=== PATIENT | male | born 1990 | race Caucasian/White ===

== ENCOUNTER 2018-11-10 15:06 | Emergency (ER) | payer OTHER ==
--- OUTSIDE RECORDS SUMMARY | 2018-11-10 15:08 | XMS REPORT ---
:1990 Author Organization eClinicalWorks Care Team Providers Name Role Phone Zachary Pinoh Provider Role Unavailable Allergies, Adverse Reactions, Alerts Substance Reaction Event Type Dilaudid increased pain Drug Allergy Problems Problem Type Condition Code Onset Dates Condition Status Problem Benign essential hypertension I10 Active Problem Fever of unknown origin R50.9 Active Problem Adult BMI 33.0-33.9 kg/sq m Z68.33 Active Assessment Benign essential hypertension I10 Active Assessment Encounter for preventative adult Z00.00 Active health care examination Assessment Adult BMI 33.0-33.9 kg/sq m Z68.33 Active Medications No Known Medications Results No Known Results Summary Purpose eClinicalWorks Submission
--- OUTSIDE RECORDS SUMMARY | 2018-11-10 15:08 | XMS REPORT ---
:1990 Author Organization eClinicalWorks Care Team Providers Name Role Phone PinoZacharyh Provider Role Unavailable Allergies No Known Allergies Problems Problem Type Condition Code Onset Dates Condition Status Problem Benign essential hypertension I10 Active Problem Fever of unknown origin R50.9 Active Problem Adult BMI 33.0-33.9 kg/sq m Z68.33 Active Medications No Known Medications Results No Known Results Summary Purpose eClinicalWorks Submission
--- OUTSIDE RECORDS SUMMARY | 2018-11-10 15:08 | XMS REPORT ---
:1990 Author Organization e[employer]Works Care Team Providers Name Role Phone Jayesh Pino Provider Role Unavailable Allergies No Known Allergies Problems Problem Type Condition Code Onset Dates Condition Status Problem Benign essential hypertension I10 Active Problem Fever of unknown origin R50.9 Active Problem Adult BMI 33.0-33.9 kg/sq m Z68.33 Active Medications No Known Medications Results No Known Results Summary Purpose eClinicalWorks Submission
[2018-11-10] MEDS ORDERED: IPRATROPIUM BROM 0.5MG/2.5ML ONE (16:19)
[2018-11-10] MEDS ORDERED: NA CHLORIDE 0.9% 1,000 ML ONE (16:19)
[2018-11-10] MEDS ORDERED: CEFTRIAXONE/SWI 1gm 1 GM/10 ML SYR ONE (16:19)
[2018-11-10] MEDS ORDERED: ALBUTEROL 2.5 MG/3 ML NEB SOL ONE (16:19)
--- NOTE | 2018-11-10 16:51 | RAD REPORT ---
EXAM DESCRIPTION: RAD - Chest Pa And Lat (2 Views) - 11/10/2018 4:18 pm CLINICAL HISTORY: Anterior chest pain COMPARISON: April 2018 TECHNIQUE: PA and lateral views of the chest were obtained. FINDINGS: The lungs are clear of a focal process. Interstitial markings are mildly prominent but no t clearly different prior study. Heart size is normal and central vasculature is within normal limits . No pleural effusion or pneumothorax seen. No acute bony finding noted. No aortic abnormality. IMPRESSION: Prominent interstitial markings similar to comparison study. No focal mass or consolidat ion.
[2018-11-10 16:54] LABS: Absolute Lymphocytes (CBC) 1.9 K/uL (0.7-4.9); Absolute Monocytes 0.9 K/uL (0.1-1.3); Absolute Neutrophil 9.2 K/uL (1.8-8.0); Basophils % 0.3 % (0-1.3); Eosinophils % 1.1 % (0-4.4); Lymphocytes % 15.7 % (15.3-44.8); MPV 9.4 fL (7.6-11.3); Monocytes % 7.6 % (3.3-12.3); RBC Red Blood Cell Count 5.18 M/uL (4.33-5.43)
[2018-11-10] MEDS ORDERED: AZITHROMYCIN IV 500 MG in NA CHLORIDE 0.9% 250 ML IVPB ONE (17:00)
[2018-11-10 17:11] LABS: ALT/SGPT 27 U/L (12-78); AST/SGOT 15 U/L (15-37); Alkaline Phosphatase 100 U/L (45-117); BUN Blood Urea Nitrogen 10 mg/dL (7-18); Bicarbonate 25 mmol/L (21-32); Bilirubin Total 0.5 mg/dL (0.2-1.0); Glucose Level 97 mg/dL (74-106); NT PRO-BNP 41 pg/mL (<125); Potassium 3.8 mmol/L (3.5-5.1); Protein, Total 7.6 g/dL (6.4-8.2); Sodium Level 142 mmol/L (136-145); Troponin I < 0.02 ng/mL (0.0-0.045)
[2018-11-10] MEDS ORDERED: METHYLPREDNISOLONE 125 MG INJ ONE (17:36)
[2018-11-10] MEDS ORDERED: predniSONE 20 MG TAB ONE (17:36)
--- NOTE | 2018-11-10 18:21 | RAD REPORT ---
EXAM DESCRIPTION: CT - Chest For Pe Angio - 11/10/2018 5:56 pm CLINICAL HISTORY: Progressive shortness of breath COMPARISON: Chest films same date TECHNIQUE: Dynamically enhanced 3 mm thick images of the chest were obtained during administration o f approximately 150mL Isovue 370 IV contrast. Coronal and oblique MIP reconstruction images were gene rated and reviewed. Exam utilizes a protocol to evaluate the pulmonary arterial tree. All CT scans are performed using dose optimization technique as appropriate and may include automated exposure control or mA/KV adjustment according to patient size. FINDINGS: No pulmonary emboli in the main pulmonary artery is or lobar arteries. No convincing evide nce for segmental branch pulmonary emboli. The distal segmental and subsegmental branch vessels are l imited in assessment due to motion. Likelihood of pulmonary embolic disease is felt to be low. Pulmo nary arterial tree opacification was not optimal. The aorta as imaged shows no acute or suspicious finding. No pericardial thickening or effusion. No infiltrate or mass in the lung parenchyma. No pleural effusion or pleural thickening. No mediastinal or hilar suspicious masses. No chest wall masses or abnormal axillary lymphadenopathy. IMPRESSION: No pulmonary emboli identified. Assessment of the distal segmental and subsegmental bran ches was limited due to motion. Likelihood of pulmonary embolic disease is felt to be low. No acute lung parenchymal process. No suspicious mediastinal or hilar mass. No other significant or suspicious findings.
[2018-11-10 18:22] LABS: Arterial Blood Carboxyhemoglob 0.8 % (0-1.5); Blood O2 Saturation 95.6 % (92-98.5)
--- NOTE | 2018-11-10 18:52 | EDPHYS ---
Physician Documentation [facility] Name: Evaristo Honeycutt Age: 28 yrs Sex: Male : 1990 Arrival Date: 11/10/2018 Time: 15:07 Bed 23 Private MD: Alvarez [facility] ED Physician Dayton Busby HPI: 11/10 16:04 This 28 yrs old Male presents to ER via Unassigned with complaints of Chest channing Pain, Shortness Of Breath. 16:04 The patient or guardian reports chest pain that is located primarily in the anterior [facility] chest wall. Historical: - Allergies: 16:48 Dilaudid; la1 - PMHx: 16:48 Hypertension; la1 - Immunization history:: Adult Immunizations. - Social history:: Smoking status: Patient/guardian denies using tobacco. - Ebola Screening: : No symptoms or risks identified at this time. ROS: 16:04 Constitutional: Negative for fever, chills, and weight loss, Eyes: Negative for injury, channing pain, redness, and discharge, ENT: Negative for injury, pain, and discharge, Neck: Negative for injury, pain, and swelling, Cardiovascular: Negative for chest pain, palpitations, and edema, Abdomen/GI: Negative for abdominal pain, nausea, vomiting, diarrhea, and constipation, Back: Negative for injury and pain, : Negative for injury, bleeding, discharge, and swelling, MS/Extremity: Negative for injury and deformity, Skin: Negative for injury, rash, and discoloration, Neuro: Negative for headache, weakness, numbness, tingling, and seizure, Psych: Negative for depression, anxiety, suicide ideation, homicidal ideation, and hallucinations, Allergy/Immunology: Negative for hives, rash, and allergies, Endocrine: Negative for neck swelling, polydipsia, polyuria, polyphagia, and marked weight changes, Hematologic/Lymphatic: Negative for swollen nodes, abnormal bleeding, and unusual bruising. 16:04 Respiratory: Positive for cough, shortness of breath, at rest. Exam: 16:04 Constitutional: This is a well developed, well nourished patient who is awake, alert, channing and in no acute distress. Head/Face: Normocephalic, atraumatic. Eyes: Pupils equal round and reactive to light, extra-ocular motions intact. Lids and lashes normal. Conjunctiva and sclera are non-icteric and not injected. Cornea within normal limits. Periorbital areas with no swelling, redness, or edema. ENT: Nares patent. No nasal discharge, no septal abnormalities noted. Tympanic membranes are normal and external auditory canals are clear. Oropharynx with no redness, swelling, or masses, exudates, or evidence of obstruction, uvula midline. Mucous membranes moist. Neck: Trachea midline, no thyromegaly or masses palpated, and no cervical lymphadenopathy. Supple, full range of motion without nuchal rigidity, or vertebral point tenderness. No Meningismus. Chest/axilla: Normal chest wall appearance and motion. Nontender with no deformity. No lesions are appreciated. Cardiovascular: Regular rate and rhythm with a normal S1 and S2. No gallops, murmurs, or rubs. Normal PMI, no JVD. No pulse deficits. Respiratory: Lungs have equal breath sounds bilaterally, clear to auscultation and percussion. No rales, rhonchi or wheezes noted. No increased work of breathing, no retractions or nasal flaring. Abdomen/GI: Soft, non-tender, with normal bowel sounds. No distension or tympany. No guarding or rebound. No evidence of tenderness throughout. Back: No spinal tenderness. No costovertebral tenderness. Full range of motion. Male : Normal genitalia with no discharge or lesions. Skin: Warm, dry with normal turgor. Normal color with no rashes, no lesions, and no evidence of cellulitis. MS/ Extremity: Pulses equal, no cyanosis. Neurovascular intact. Full, normal range of motion. Neuro: Awake and alert, GCS 15, oriented to person, place, time, and situation. Cranial nerves II-XII grossly intact. Motor strength 5/5 in all extremities. Sensory grossly intact. Cerebellar exam normal. Normal gait. Psych: Awake, alert, with orientation to person, place and time. Behavior, mood, and affect are within normal limits. 16:59 Cardiovascular: Rate: normal, Rhythm: regular, Pulses: Pulses are 4+ in bilateral channing radial, brachial, femoral, popliteal, posterior tibial and and dorsalis pedis arteries.. Heart sounds: normal, normal S1and S2, no S3 or S4, no murmur, no rub, no gallop, Edema: is not appreciated, JVD: is not appreciated. 16:59 Musculoskeletal/extremity: DVT Exam: No signs of deep vein thrombosis. no pain, no swelling, no tenderness, negative Homans' sign noted on exam, no appreciated bluish discoloration, no erythema, no increased warmth. Vital Signs: 15:09 BP 141 / 89; Pulse 105; Resp 24; Temp 97.9; Pulse Ox 92% on R/A; Weight 99.79 kg (R); aj1 Height 5 ft. 9 in. (175.26 cm) (R); 16:47 BP 127 / 88; Pulse 88; Resp 18; Pulse Ox 98% on 2 lpm NC; la1 18:08 BP 128 / 69; Pulse 104; Resp 18; Pulse Ox 100% on R/A; la1 18:53 BP 135 / 70; Pulse 94; Resp 20; Pulse Ox 97% on R/A; la1 15:09 Body Mass Index 32.49 (99.79 kg, 175.26 cm) aj1 MDM: 15:[address] [facility] 16:05 Data reviewed: vital signs, nurses notes, lab test result(s), EKG, radiologic studies, channing plain films. 05 15:51 Order name: Flu; Complete Time: 16:59 [facility] 11/10 16:03 Order name: CBC with Diff [facility] 11/10 16:03 Order name: Comprehensive Metabolic Panel [facility] 11/10 16:03 Order name: Blood Culture Adult (2) [facility] 11/10 16:03 Order name: Troponin I; Complete Time: 17:17 [facility] 11/10 16:03 Order name: D-Dimer; Complete Time: 17:17 [facility] 11/10 15:51 Order name: Chest Pa And Lat (2 Views) XRAY; Complete Time: 16:59 [facility] 11/10 16:03 Order name: BNP; Complete Time: 17:17 [facility] 11/10 16:03 Order name: CBC with Automated Diff; Complete Time: 16:59 EDMS 11/10 16:03 Order name: Comprehensive Metabolic Panel; Complete Time: 17:17 EDFL 11/10 17:17 Order name: CT Chest For PE Angio; Complete Time: 18:27 [facility] 11/10 17:17 Order name: US Extremity Venous W Compression Patel [facility] 11/10 18:01 Order name: ABG: on room air [facility] 11/10 18:01 Order name: ABG Arterial Blood Gas; Complete Time: 18:49 EDFL 11/10 18:52 Order name: Vital Signs: room air; Complete Time: 18:53 [facility] Administered Medications: 17:17 Drug: NS 0.9% 1000 ml Route: IV; Rate: 1 bolus; Site: left antecubital; la1 17:39 Follow up: IV Status: Completed infusion la1 17:17 Drug: Albuterol - atroVENT (3:1) (2.5 mg - 0.5 mg) 3 ml Route: Nebulizer; la1 17:21 Follow up: Response: No adverse reaction la1 17:18 Drug: Rocephin - (cefTRIAXone) 1 grams Route: IVPB; Infused Over: 30 mins; Site: left la1 antecubital; 17:21 Follow up: IV Status: Completed infusion la1 17:40 Drug: Zithromax 500 mg Route: IVPB; Infused Over: 1 hrs; Site: left antecubital; la1 18:40 Follow up: IV Status: Completed infusion; IV Intake: 250ml la1 17:40 Drug: SOLU-Medrol 125 mg Route: IVP; Site: left antecubital; la1 18:12 Follow up: Response: No adverse reaction la1 17:40 Drug: predniSONE 40 mg Route: PO; la1 18:12 Follow up: Response: No adverse reaction la1 19:17 Drug: Aspirin 162 mg Route: PO; la1 19:17 Follow up: Response: Medication administered at discharge. pr1 Disposition: 11/10/18 18:51 Discharged to Home. Impression: Bronchitis, not specified as acute or chronic, Hypoxemia, Tobacco abuse counseling - vaping, Tobacco use, Chest pain, unspecified, Chest pain on breathing. - Condition is Stable. - Discharge Instructions: Acute Bronchitis, Adult, How to Use an Inhaler, Steps to Quit Smoking, Smoking Hazards, Upper Respiratory Infection, Adult, Acute Bronchitis, Sypr-kk-Etkx, Upper Respiratory Infection, Adult, Yzsu-la-Espx, Steps to Quit Smoking, Phvh-ey-Tpig, Hypoxemia, Aspirin and Your Heart. - Prescriptions for Medrol (Angle) 4 mg Oral Tablets, Dose Pack - take 1 tablet by ORAL route as directed - follow package instructions; 1 packet. Albuterol Sulfate 90 mcg/actuation - inhale 1-2 puff by INHALATION route every 4-6 hours; 1 Inhaler. Zithromax 500 mg Oral Tablet - take 1 tablet by ORAL route once daily for 5 days; 5 tablet. - Medication Reconciliation Form, Thank You Letter, Antibiotic Education, Prescription Opioid Use form. - Follow up: Jayesh Pino; When: 2 - 3 days; Reason: Recheck today's complaints, Continuance of care, Re-evaluation by your physician. Follow up: Juanjose Bowen; When: 2 - 3 days; Reason: Recheck today's complaints, Continuance of care, Re-evaluation by your physician. Follow up: Anup Ortiz MD; When: 2 - 3 days; Reason: Recheck today's complaints, Re-evaluation by your physician. - Problem is new. - Symptoms have improved. Signatures: Dispatcher [employer] EDMS Dayton Busby MD MD cha Attema, Lee RN RN la1 Corrections: (The following items were deleted from the chart) 18:56 18:51 11/10/2018 18:51 Discharged to Home. Impression: Bronchitis, not specified as channing acute or chronic; Hypoxemia; Tobacco abuse counseling - vaping; Tobacco use; Chest pain, unspecified; Chest pain on breathing. Condition is Stable. Discharge Instructions: Acute Bronchitis, Adult, How to Use an Inhaler, Steps to Quit Smoking, Smoking Hazards, Upper Respiratory Infection, Adult, Acute Bronchitis, Wxev-wq-Sxcl, Upper Respiratory Infection, Adult, Xnmb-rx-Khnp, Steps to Quit Smoking, Ckpb-xq-Ltzl, Hypoxemia, Aspirin and Your Heart. Prescriptions for Medrol (Angel) 4 mg Oral Tablets, Dose Pack - take 1 tablet by ORAL route as directed - follow package instructions; 1 packet, Albuterol Sulfate 90 mcg/actuation - inhale 1-2 puff by INHALATION route every 4-6 hours; 1 Inhaler, Zithromax 500 mg Oral Tablet - take 1 tablet by ORAL route once daily for 5 days; 5 tablet. and Forms are Medication Reconciliation Form, Thank You Letter, Antibiotic Education, Prescription Opioid Use. Follow up: Jayesh Pino; When: 2 - 3 days; Reason: Recheck today's complaints, Continuance of care, Re-evaluation by your physician. Follow up: Juanjose Bowen; When: 2 - 3 days; Reason: Recheck today's complaints, Continuance of care, Re-evaluation by your physician. Problem is new. Symptoms have improved. [facility] 19:18 18:56 11/10/2018 18:51 Discharged to Home. Impression: Bronchitis, not specified as la1 acute or chronic; Hypoxemia; Tobacco abuse counseling - vaping; Tobacco use; Chest pain, unspecified; Chest pain on breathing. Condition is Stable. Discharge Instructions: Acute Bronchitis, Adult, How to Use an Inhaler, Steps to Quit Smoking, Smoking Hazards, Upper Respiratory Infection, Adult, Acute Bronchitis, Wede-fk-Dssc, Upper Respiratory Infection, Adult, Oylb-yu-Dddy, Steps to Quit Smoking, Bcfr-pi-Xlwi, Hypoxemia, Aspirin and Your Heart. Prescriptions for Medrol (Angel) 4 mg Oral Tablets, Dose Pack - take 1 tablet by ORAL route as directed - follow package instructions; 1 packet, Albuterol Sulfate 90 mcg/actuation - inhale 1-2 puff by INHALATION route every 4-6 hours; 1 Inhaler, Zithromax 500 mg Oral Tablet - take 1 tablet by ORAL route once daily for 5 days; 5 tablet. and Forms are Medication Reconciliation Form, Thank You Letter, Antibiotic Education, Prescription Opioid Use. Follow up: Jayesh Pino; When: 2 - 3 days; Reason: Recheck today's complaints, Continuance of care, Re-evaluation by your physician. Follow up: Juanjose Bowen; When: 2 - 3 days; Reason: Recheck today's complaints, Continuance of care, Re-evaluation by your physician. Follow up: Anup Ortiz; When: 2 - 3 days; Reason: Recheck today's complaints, Re-evaluation by your physician. Problem is new. Symptoms have improved. [facility]
--- NOTE | 2018-11-10 18:52 | ER ---
Nurse's Notes [facility] Name: Evaristo Honeycutt Age: 28 yrs Sex: Male : 1990 Arrival Date: 11/10/2018 Time: 15:07 Bed 23 Private MD: Jayesh Pino Diagnosis: Bronchitis, not specified as acute or chronic;Hypoxemia;Tobacco abuse counseling-vaping;Tobacco use;Chest pain, unspecified;Chest pain on breathing Presentation: 11/10 15:09 Acuity: TINY 2 aj1 16:49 Presenting complaint: Patient states: Progressive SOB, pain to chest and head, fatigue. la1 Transition of care: patient was not received from another setting of care. Onset of symptoms was November 10, 2018. Risk Assessment: Do you want to hurt yourself or someone else? Patient reports no desire to harm self or others. Initial Sepsis Screen: Does the patient meet any 2 criteria?. Initial Sepsis Screen: Does the patient have a suspected source of infection? No. Patient's initial sepsis screen is negative. Care prior to arrival: None. 16:49 Method Of Arrival: Wheelchair la1 Historical: - Allergies: 16:48 Dilaudid; la1 - PMHx: 16:48 Hypertension; la1 - Immunization history:: Adult Immunizations. - Social history:: Smoking status: Patient/guardian denies using tobacco. - Ebola Screening: : No symptoms or risks identified at this time. Screenin:23 Abuse screen: Denies injuries from another. Abuse screen: Denies threats or abuse. la1 Nutritional screening: No deficits noted. Tuberculosis screening: No symptoms or risk factors identified. Fall Risk None identified. Assessment: 15:22 General: Appears ill, Behavior is calm, cooperative. Pain: Complains of pain in face la1 and chest Pain does not radiate. Pain began 2-3 days ago. Neuro: Level of Consciousness is awake, alert, obeys commands, Oriented to person, place, time, situation. Cardiovascular: Reports shortness of breath, Heart tones S1 S2 present Capillary refill < 3 seconds Patient's skin is warm and dry. Rhythm is sinus rhythm. Respiratory: Airway is patent Respiratory effort is even, unlabored, Respiratory pattern is regular, symmetrical, Breath sounds are clear bilaterally. GI: Abdomen is non-distended, obese, Bowel sounds present X 4 quads. : No signs and/or symptoms were reported regarding the genitourinary system. 19:03 Reassessment: Patient appears in no apparent distress at this time. No changes from la1 previously documented assessment. Patient and/or family updated on plan of care and expected duration. Pain level reassessed. Patient is alert, oriented x 3, equal unlabored respirations, skin warm/dry/pink. Patient states symptoms have improved. Vital Signs: 15:09 BP 141 / 89; Pulse 105; Resp 24; Temp 97.9; Pulse Ox 92% on R/A; Weight 99.79 kg (R); aj1 Height 5 ft. 9 in. (175.26 cm) (R); 16:47 BP 127 / 88; Pulse 88; Resp 18; Pulse Ox 98% on 2 lpm NC; la1 18:08 BP 128 / 69; Pulse 104; Resp 18; Pulse Ox 100% on R/A; la1 18:53 BP 135 / 70; Pulse 94; Resp 20; Pulse Ox 97% on R/A; la1 15:09 Body Mass Index 32.49 (99.79 kg, 175.26 cm) aj ED Course: 15:07 Patient arrived in ED. mr 15:07 Jayesh Pino DO is Private Physician. mr 15:09 Erica Mead, JO-ANN is Primary Nurse. ss 15:09 Triage completed. aj1 15:13 Dayton Busby MD is Attending Physician. channing 15:22 Arm band placed on left wrist. la1 15:23 Side rails up X 1. supply tech on. Pulse ox on. NIBP on. la1 16:16 Chest Pa And Lat (2 Views) XRAY In Process Unspecified. EDMS 16:48 No provider procedures requiring assistance completed. Inserted saline lock: 20 gauge la1 in left antecubital area, using aseptic technique. Blood collected. Oxygen administration via nasal cannula \T\ 2L/min. 17:[address] mw3 17:56 CT Chest For PE Angio In Process Unspecified. EDMS 18:32 Ultrasound completed. Patient tolerated well. Notified ED Physician marisa. sg3 18:50 Jayesh Pino DO is Referral Physician. channing 18:50 Juanjose Bowen MD is Referral Physician. channing 18:56 Anup Ortiz MD is Referral Physician. channing 19:17 IV discontinued, intact, bleeding controlled, No redness/swelling at site. Pressure la1 dressing applied. 19:19 US Extremity Venous W Compression Patel In Process Unspecified. EDMS Administered Medications: 17:17 Drug: NS 0.9% 1000 ml Route: IV; Rate: 1 bolus; Site: left antecubital; la1 17:39 Follow up: IV Status: Completed infusion la1 17:17 Drug: Albuterol - atroVENT (3:1) (2.5 mg - 0.5 mg) 3 ml Route: Nebulizer; la1 17:21 Follow up: Response: No adverse reaction la1 17:18 Drug: Rocephin - (cefTRIAXone) 1 grams Route: IVPB; Infused Over: 30 mins; Site: left la1 antecubital; 17:21 Follow up: IV Status: Completed infusion la1 17:40 Drug: Zithromax 500 mg Route: IVPB; Infused Over: 1 hrs; Site: left antecubital; la1 18:40 Follow up: IV Status: Completed infusion; IV Intake: 250ml la1 17:40 Drug: SOLU-Medrol 125 mg Route: IVP; Site: left antecubital; la1 18:12 Follow up: Response: No adverse reaction la1 17:40 Drug: predniSONE 40 mg Route: PO; la1 18:12 Follow up: Response: No adverse reaction la1 19:17 Drug: Aspirin 162 mg Route: PO; la1 19:17 Follow up: Response: Medication administered at discharge. la1 Intake: 18:40 IV: 250ml; Total: 250ml. la1 Outcome: 18:51 Discharge ordered by . channing 19:17 Discharged to home ambulatory. la1 19:17 Condition: stable 19:17 Discharge instructions given to patient, Instructed on discharge instructions, follow up and referral plans. medication usage, Demonstrated understanding of instructions, follow-up care, medications, Prescriptions given X 3. 19:18 Patient left the ED. la1 Signatures: Dispatcher [employer] EDMS Elayne Guillen RN RN aj1 Dayton Busby MD MD cha Rivera, Devorah mr Erica Mead RN RN ss Attema, Lee, RN RN la1 Judith Morrison 3 Arlene Antunez mw3
[2018-11-10] MEDS ORDERED: ASPIRIN 81 MG CHEWABLE TABLET ONE (19:14)
[2018-11-10 19:31] VITALS: TEMP 97.9
[2018-11-10 19:40] VITALS: BP 135/70; O2SAT 97
--- NOTE | 2018-11-10 19:57 | RAD REPORT ---
EXAM DESCRIPTION: US - Extrem Venous W Compress Patel - 11/10/2018 7:19 pm CLINICAL HISTORY: Leg pain and swelling, elevated D-dimer COMPARISON: None. TECHNIQUE: Real-time sonographic evaluation of the bilateral lower extremity common femoral, superfi cial femoral, popliteal and posterior tibial veins was performed. FINDINGS: Normal compressibility, flow augmentation, phasic flow and spontaneous flow are identified in the left and right lower extremity common femoral, superficial femoral, popliteal and posterior t ibial veins. No intraluminal filling defects seen. IMPRESSION: No DVT in either lower extremity.
--- NOTE | 2018-11-11 08:48 | EKG ---
Test Date: 2018-11-10 Test Time: 15:19:13 Fuse Cutter: LA MEASUREMENT RESULTS: Intervals: Rate: 95 WV: 134 QRSD: 104 QT: 350 QTc: 439 Hubbard: P: 35 WV: 134 QRS: 52 T: 44 INTERPRETIVE STATEMENTS: Normal sinus rhythm Normal ECG No previous ECG available for comparison Electronically Signed On 11-11-18 08:47:51 CDT by Alden Gayle
== END 2018-11-10 19:18 | disposition home or self-care (01) ==
LOC: ER 15:06
DX: J40 Bronchitis, not specified as acute or chronic (principal); R09.02 Hypoxemia; R07.1 Chest pain on breathing; Z72.0 Tobacco use; Z71.6 Tobacco abuse counseling
CPT/HCPCS: 36415; 71046; 71275; 80053; 82805; 83880; 84484; 85025; 85379; 87040; 87804; 93005; 93970; 94640; 96365; 96375; 99285; J0456; J0696; J2930; J7030; J7512; Q9967

== ENCOUNTER 2019-03-26 09:52 | Emergency (ER) | payer OTHER ==
--- OUTSIDE RECORDS SUMMARY | 2019-03-26 09:55 | XMS REPORT ---
:1990 Author [facility] Address [address] [place] [address] Dr. Garcia [address] [place] [id number] Care Team Providers Name Role Phone Unavailable Unavailable Unavailable Problems This patient has no known problems. Allergies, Adverse Reactions, Alerts This patient has no known allergies or adverse reactions. Medications This patient has no known medications.
--- OUTSIDE RECORDS SUMMARY | 2019-03-26 09:55 | XMS REPORT ---
:1990 Author Organization [employer] Care Team Providers Name Role Phone Alvarez Jayesh Provider Role Unavailable Allergies, Adverse Reactions, Alerts Substance Reaction Event Type Dilaudid increased pain Drug Allergy Problems Problem Type Condition Code Onset Dates Condition Status Assessment SOB (shortness of breath) R06.02 Active Problem Adult BMI 33.0-33.9 kg/sq m Z68.33 Active Problem Benign essential hypertension I10 Active Problem Nicotine dependence with F17.209 Active nicotine-induced disorder, unspecified nicotine product type Assessment Acute bronchitis, unspecified J20.9 Active organism Assessment Nicotine dependence with F17.209 Active nicotine-induced disorder, unspecified nicotine product type Problem Fever of unknown origin R50.9 Active Medications Medication Code System Code Instructions Start Date End Date Status Dosage Symbicort [facility] [id number] 160-4.5 MCG/ACT November 12, May 11, Active 2 puffs Inhalation Twice 2018 2018 a day Results No Known Results Summary Purpose eClinicalWorks Submission
--- OUTSIDE RECORDS SUMMARY | 2019-03-26 09:55 | XMS REPORT ---
:1990 Author Organization eClinicalWorks Care Team Providers Name Role Phone Alvarez Jayesh Provider Role Unavailable Allergies No Known Allergies Problems Problem Type Condition Code Onset Dates Condition Status Problem Allergic rhinitis, unspecified J30.9 Active seasonality, unspecified trigger Problem Adult BMI 33.0-33.9 kg/sq m Z68.33 Active Problem Nicotine dependence with F17.209 Active nicotine-induced disorder, unspecified nicotine product type Problem Benign essential hypertension I10 Active Problem Fever of unknown origin R50.9 Active Medications No Known Medications Results No Known Results Summary Purpose eClinicalWorks Submission
--- NOTE | 2019-03-26 10:52 | EDPHYS ---
Physician Documentation [facility] Name: Evaristo Honeycutt Age: 28 yrs Sex: Male : 1990 Arrival Date: 03/26/2019 Time: 09:57 Bed 16 Private MD: Alvarez [facility] ED Physician Javi Reyes HPI: 03/26 10:25 This 28 yrs old Male presents to ER via Ambulatory with complaints of Foot cp Injury. 10:25 The patient presents with an injury, a puncture wound, wire from chicken coup. The cp complaints affect the right great toe. Context: the patient can fully bear weight, the patient is able to ambulate, with mild difficulty. Onset: The symptoms/episode began/occurred last night. 20:25 The patient has been recently seen by a physician: Dr. Pino earlier today, with cp similar presenting complaints, and was sent to the [facility] Emergency Department for further evaluation. Historical: - Allergies: 10:20 Dilaudid; iw - Home Meds: 10:20 None [Active]; iw - PMHx: 10:20 Hypertension; iw - PSHx: 10:20 right foot; iw - Immunization history:: Adult Immunizations Last tetanus immunization: < 10 years ago. - Social history:: Smoking status: . - Ebola Screening: : Patient negative for fever greater than or equal to 101.5 degrees Fahrenheit, and additional compatible Ebola Virus Disease symptoms Patient denies exposure to infectious person Patient denies travel to an Ebola-affected area in the 21 days before illness onset No symptoms or risks identified at this time. ROS: 10:30 Skin: Positive for puncture, of the right great toe. cp 10:30 Eyes: Negative for injury, pain, redness, and discharge. cp 10:30 Constitutional: Negative for body aches, chills, fever, poor PO intake. 10:30 Cardiovascular: Negative for chest pain, palpitations. 10:30 Respiratory: Negative for cough, shortness of breath, wheezing. 10:30 Abdomen/GI: Negative for abdominal pain, nausea, vomiting, and diarrhea. 10:30 Neuro: Negative for altered mental status, headache, weakness. 10:30 All other systems are negative. Exam: 10:40 Constitutional: The patient appears in no acute distress, alert, awake, well developed, cp well nourished. 10:40 Head/Face: Normocephalic, atraumatic. cp 10:40 Musculoskeletal/extremity: Extremities: grossly normal except: noted in the right great toe: pain, swelling, tenderness, There is no evidence of decreased ROM, no open wounds noted, no erythema, mild pain with movement at metatarsal phalangeal joint, Perfusion: the extremity is normally perfused throughout, Sensation intact. Vital Signs: 10:18 BP 131 / 79; Pulse 80; Resp 16; Temp 98.0; Pulse Ox 97% on R/A; Weight 104.33 kg; iw Height 5 ft. 10 in. (177.80 cm); Pain 6/10; 10:18 Body Mass Index 33.00 (104.33 kg, 177.80 cm) iw MDM: 10:16 Patient medically screened. cp 10:49 Data reviewed: vital signs, nurses notes, radiologic studies, plain films. Test cp interpretation: by ED physician or midlevel provider: xrays of right foot negative for fracture, hardware intact. 03/26 10:19 Order name: XRAY Foot RIGHT 3 View cp Administered Medications: 11:00 Drug: Tetanus-Diphtheria Toxoid Adult 0.5 ml {Doctor Of Podiatric Medicine: [employer]. Exp: ph 11/19/2020. Lot #: [id number]. } Route: IM; Site: left deltoid; 11:15 Follow up: Response: No adverse reaction ph Disposition: 13:26 Co-signature as Attending Physician, Javi Reyes MD I agree with the assessment and kdr plan of care. Disposition: 03/26/19 10:51 Discharged to Home. Impression: Puncture wound without foreign body of right great toe without damage to nail. - Condition is Stable. - Discharge Instructions: Puncture Wound. - Prescriptions for Levaquin 500 mg Oral Tablet - take 1 tablet by ORAL route once daily for 10 days; 10 tablet. Ibuprofen 800 mg Oral Tablet - take 1 tablet by ORAL route every 8 hours As needed take with food; 30 tablet. - Medication Reconciliation Form, Thank You Letter, Antibiotic Education, Prescription Opioid Use form. - Follow up: Jayesh Pino DO; When: 48 Hours; Reason: Wound Recheck. - Problem is new. - Symptoms have improved. Signatures: Dispatcher [employer] EDMS Javi Reyes MD MD kdr Gely Abraham RN RN iw Tara Lewis RN RN Hannah, [place], RUDDY PA cp Corrections: (The following items were deleted from the chart) 11:17 10:51 03/26/2019 10:51 Discharged to Home. Impression: Puncture wound without foreign ph body of right great toe without damage to nail. Condition is Stable. Forms are Medication Reconciliation Form, Thank You Letter, Antibiotic Education, Prescription Opioid Use. Follow up: Jayesh Pino; When: 48 Hours; Reason: Wound Recheck. Problem is new. Symptoms have improved. cp
--- NOTE | 2019-03-26 10:52 | ER ---
Nurse's Notes [facility] Name: Evaristo Honeycutt Age: 28 yrs Sex: Male : 1990 Arrival Date: 03/26/2019 Time: 09:57 Bed 16 Private MD: Jayesh Pino Diagnosis: Puncture wound without foreign body of right great toe without damage to nail Presentation: 03/26 10:15 Presenting complaint: Patient states: stepped on metal piece of fencing last night, was iw sharp wiring that almost went through the right foot, pulled out wire but still having pain, hx of crush injury to foot with metal plate and screws in place, was seen at Dr. Pino's office and sent here. Transition of care: patient was not received from another setting of care. Onset of symptoms was March 25, 2019. Risk Assessment: Do you want to hurt yourself or someone else? Patient reports no desire to harm self or others. Initial Sepsis Screen: Does the patient meet any 2 criteria? No. Patient's initial sepsis screen is negative. Does the patient have a suspected source of infection? No. Patient's initial sepsis screen is negative. Care prior to arrival: None. 10:15 Method Of Arrival: Ambulatory iw 10:15 Acuity: TINY 4 iw Historical: - Allergies: 10:20 Dilaudid; iw - Home Meds: 10:20 None [Active]; iw - PMHx: 10:20 Hypertension; iw - PSHx: 10:20 right foot; iw - Immunization history:: Adult Immunizations Last tetanus immunization: < 10 years ago. - Social history:: Smoking status: . - Ebola Screening: : Patient negative for fever greater than or equal to 101.5 degrees Fahrenheit, and additional compatible Ebola Virus Disease symptoms Patient denies exposure to infectious person Patient denies travel to an Ebola-affected area in the 21 days before illness onset No symptoms or risks identified at this time. Screenin:16 Abuse screen: Denies threats or abuse. Denies injuries from another. Nutritional ph screening: No deficits noted. Tuberculosis screening: No symptoms or risk factors identified. Fall Risk None identified. Assessment: 10:45 General: Appears in no apparent distress. comfortable, well groomed, Behavior is calm, ph cooperative, appropriate for age, Denies fever. Pain: Complains of pain in left foot. Neuro: Level of Consciousness is awake, alert, obeys commands, Oriented to person, place, time, situation. Cardiovascular: Capillary refill < 3 seconds in bilateral fingers Patient's skin is warm and dry. Respiratory: Airway is patent Respiratory effort is even, unlabored. Derm: Skin is intact, is healthy with good turgor, Skin is pink, warm \T\ dry. Musculoskeletal: Circulation, motion, and sensation intact. Range of motion: intact in all extremities. Vital Signs: 10:18 BP 131 / 79; Pulse 80; Resp 16; Temp 98.0; Pulse Ox 97% on R/A; Weight 104.33 kg; iw Height 5 ft. 10 in. (177.80 cm); Pain 6/10; 10:18 Body Mass Index 33.00 (104.33 kg, 177.80 cm) iw ED Course: 09:57 Patient arrived in ED. mr 09:57 Jayesh Pino DO is Private Physician. mr 10:08 Tara Lewis RN is Primary Nurse. ph 10:15 [place] Young PA is PHCP. cp 10:15 Javi Reyes MD is Attending Physician. cp 10:18 Triage completed. iw 10:18 Arm band placed on. iw 10:49 Jayesh Pino DO is Referral Physician. cp 10:52 XRAY Foot RIGHT 3 View In Process Unspecified. EDMS 11:16 Patient has correct armband on for positive identification. Bed in low position. Call ph light in reach. Side rails up X 1. 11:17 No provider procedures requiring assistance completed. Patient did not have IV access ph during this emergency room visit. Administered Medications: 11:00 Drug: Tetanus-Diphtheria Toxoid Adult 0.5 ml {3D Modeler: [employer]. Exp: ph 11/19/2020. Lot #: [id number]. } Route: IM; Site: left deltoid; 11:15 Follow up: Response: No adverse reaction ph Outcome: 10:51 Discharge ordered by MD. cp 11:17 Discharged to home ambulatory. ph 11:17 Condition: good 11:17 Discharge instructions given to patient, Instructed on discharge instructions, follow up and referral plans. medication usage, Demonstrated understanding of instructions, follow-up care, medications, Prescriptions given X 2. 11:17 Patient left the ED. ph Signatures: Dispatcher [employer] [facility] Devorah Laird Gely Abraham RN RN iw Tara Lewis RN RN ph Hannah, [place], PA PA cp Corrections: (The following items were deleted from the chart) 10:19 10:15 Presenting complaint: Patient states: stepped on metal piece of fencing last iw night, was sharp wiring that almost went through the right foot, pulled out wire but still having pain, hx of crush injury to foot with metal plate and screws in place iw
[2019-03-26] MEDS ORDERED: TETANUS & DIPHTHERIA TOX,ADULT 0.5 ML VIAL ONE (10:58)
--- NOTE | 2019-03-26 11:24 | RAD REPORT ---
EXAM DESCRIPTION: RAD - Foot Right 3 View - 03/26/2019 10:49 am CLINICAL HISTORY: Right foot pain, puncture wound to the foot, history of prior foot injury with janine calderón COMPARISON: January 2017 FINDINGS: No acute fracture is identified. There is no dislocation or periosteal reaction seen. Hard gunderson is in place at the base of the first metatarsal and in the calcaneus. Patient has degenerative c hange that is relatively mild at the first MTP joint. There are also early degenerative changes relat ed to the trauma at the talonavicular and calcaneal cuboid articulations. Numerous hemostasis clips are in place. Site of the puncture wound is not noted on any of the images. No foreign body is suspected. Right foot soft tissue findings are not clearly different from the com parison. IMPRESSION: No retained foreign body identified. Site of puncture wound is not demarcated on the magali ges. Degenerative and postsurgical changes are present to the bones of the right foot. No acute bone or eda int finding.
[2019-03-26 11:27] VITALS: BP 131/79; TEMP 98; O2SAT 97
== END 2019-03-26 11:17 | disposition home or self-care (01) ==
LOC: ER 09:52
DX: S91.131A Puncture wound without foreign body of right great toe without damage to nail, initial encounter (principal); W22.8XXA Striking against or struck by other objects, initial encounter; Y93.89 Activity, other specified; Y92.9 Unspecified place or not applicable; Z23 Encounter for immunization; Z88.8 Allergy status to other drugs, medicaments and biological substances; I10 Essential (primary) hypertension
CPT/HCPCS: 90471; 90714; 99283

== ENCOUNTER 2020-04-20 12:04 | Emergency (ER) | payer OTHER ==
--- OUTSIDE RECORDS SUMMARY | 2020-04-20 12:07 | XMS REPORT | Continuity of Care Document ---
:1990 Author Organization [facility] t Address [address] [place] [address] Care Team Providers Name Role Phone Unavailable Unavailable Unavailable Problems Condition Condition Condition Status Onset Resolution Last Treating Co mments Source Name Details Category Date Date Treatment Clinician Date Benign Benign Problem Active [facility] essential essential Luke s - hypertensi hypertensi [facility] Fever of Fever of Problem [facility] unknown unknown [facility] - origin origin [facility] Adult BMI Adult BMI Problem Active [facility] 33.0-33.9 33.0-33.9 Luke s - kg/sq m kg/sq m [facility] ent Clinics Nicotine Nicotine Problem [facility] dependence dependence Janine kes - with with [facility]oria nicotine-i nicotine-i l nduced nduced Outpati disorder, disorder, ent unspecifie unspecifie Cl inics d nicotine d nicotine product product type type Allergic Allergic Problem Active [facility] rhinitis, rhinitis, Luke s - unspecifie unspecifie Me moria d d l seasonalit seasonalit Ou tpati y, y, ent unspecifie unspecifie Cl inics d trigger d trigger Mixed Mixed Problem Active [facility] hyperlipid hyperlipid Janine kes - emia emia [facility]oria l [facility] ent Clinics Encounter Encounter Diagnosis Active [facility] for for [facility] - preventati preventati Me moria ve adult ve adult [facility] care ent examinatio examinatio Cl inics n n Allergies, Adverse Reactions, Alerts Allergy Allergy Status Severity Reaction(s) Onset Inactive Treating Comm ents Source Name Type Date Date Clinician Dilaudid Adverse Active increased [facility] Reaction pain [facility] - [facility] ent Clinics Medications Ordered Filled Start Stop Current Ordering Indication Dosage Frequency Signature Comments Components Source Medication Medication Date Date Medication? Clinician (SIG) Name Name Montelukast Montelukast 2018- Yes Jayesh [address] [facility] Sodium Sodium 0-28 Pino Janinekes - 00:00: [facility] 00 Outpati ent Clinics Procedures This patient has no known procedures. Encounters Start End Encounter Admission Attending Care Care Encounter Source Date/Time Date/Time Type Type Clinicians Facility Department ID 2020-01-12 2020-01-12 [facility] [id number] [facility] 08:45:00 08:45:00 t [facility] Medicine Outpati ent Clinics 2019-06-25 2019-06-25 [facility] [id number] [facility] 16:45:00 16:45:00 t [facility] Medicine Outpati ent Clinics 2019-05-05 2019-05-05 [facility] [id number] [facility] 08:30:00 08:30:00 t [facility] Medicine Outpati ent Clinics 2019-04-28 2019-04-28 [facility] [id number] [facility] 08:35:00 08:35:00 t [facility] Medicine Outpati ent Clinics 2019-04-04 2019-04-04 [facility] [id number] [facility] 08:30:00 08:30:00 t [facility] Medicine Outpati ent Clinics 2019-03-26 2019-03-26 [facility] [id number] [facility] 09:45:00 09:45:00 t [facility] Medicine Outpati ent Clinics 2018-12-19 2018-12-19 [facility] [id number] [facility] 11:17:00 11:17:00 t [facility] Medicine Outpati ent Clinics 2018-11-12 2018-11-12 [facility] [id number] [facility] 10:00:00 10:00:00 t [facility] Medicine Outpati ent Clinics 2018-03-12 2018-03-12 [facility] [id number] [facility] 13:34:00 13:34:00 t [facility] 2018-03-04 2018-03-04 Outpatient [facility]ne [facility] [id number] [facility] 08:48:00 08:48:00 [employer] [facility] 2017-11-08 2017-11-08 Outpatient Marianne Lop[facility] [id number] 10:30:00 10:30:00 [facility] ent Clinics Results This patient has no known results.
[2020-04-20] MEDS ORDERED: METHYLPREDNISOLONE 125 MG INJ ONE (12:26)
[2020-04-20] MEDS ORDERED: DIPHENHYDRAMINE 50 MG/ML VIAL ONE (12:27)
[2020-04-20] MEDS ORDERED: FAMOTIDINE 20 MG/2 ML VIAL IV ONE (12:27)
[2020-04-20] MEDS ORDERED: NA CHLORIDE 0.9% 1,000 ML ONE (12:27)
[2020-04-20] MEDS ORDERED: LEVALBUTEROL 1.25 MG/3 ML NEB ONE (12:40)
[2020-04-20 12:45] LABS: Absolute Lymphocytes (CBC) 2.9 K/uL (0.7-4.9); Basophils % 0.8 % (0-1.3); Hematocrit 45.4 % (39.6-49.0); Lymphocytes % 42.9 % (15.3-44.8); MPV 9.9 fL (7.6-11.3); RBC Red Blood Cell Count 5.23 M/uL (4.33-5.43)
[2020-04-20 12:54] LABS: BUN Blood Urea Nitrogen 9 mg/dL (7-18); Bicarbonate 25 mmol/L (21-32); Glucose Level 116 mg/dL (74-106); NT PRO-BNP 14 pg/mL (<125); Potassium 3.4 mmol/L (3.5-5.1); Sodium Level 142 mmol/L (136-145); Troponin (Emerg Dept Use Only) < 0.02 ng/mL (0.0-0.045)
--- NOTE | 2020-04-20 14:36 | RAD REPORT ---
EXAM DESCRIPTION: RAD - Foot Left 3 View - 04/20/2020 2:11 pm CLINICAL HISTORY: PAINnontraumatic COMPARISON: Foot Right 3 View dated 03/26/2019 FINDINGS: No fractures seen. No dislocation or periosteal reaction changes. There is expansile fraser e and slight lucency in the shaft of the second proximal phalanx. No similar finding in any of the ot her phalanges. There is no cortical disruption or periosteal reaction. Base and head of the second pr oximal phalanx are unremarkable. No other lucent or expansile changes seen in the foot. 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 Correlation is needed t o determine if there is any pain at the second proximal phalanx. No joint abnormality. No spurring or erosive change at the articular margins. No periarticular calcif ication, mass or soft tissue thickening. No plantar spur. No air or foreign body in the soft tissues. IMPRESSION: No acute bone finding. Lucent focus in the shaft second proximal phalanx with slight expansile change. No cortical disruptio n or periosteal reaction. 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 Correlation is needed with any pain localizing to the second proximal phalanx.
--- NOTE | 2020-04-20 14:37 | RAD REPORT ---
EXAM DESCRIPTION: RAD - Ankle Left 3 View - 04/20/2020 2:11 pm CLINICAL HISTORY: PAIN, nontraumatic COMPARISON: No comparisons FINDINGS: No fracture, dislocation or periosteal reaction. No joint effusion seen. No joint space na rrowing. Lateral soft tissues are mildly prominent. IMPRESSION: Mild lateral soft tissue swelling. No acute bone or joint finding at the left ankle.
--- NOTE | 2020-04-20 15:06 | ER ---
Nurse's Notes [facility] Name: Evaristo Honeycutt Age: 29 yrs Sex: Male : 1990 Arrival Date: 04/20/2020 Time: 12:05 Bed 4 Private MD: Diagnosis: Dyspnea, unspecified;Acute allergic reaction Presentation: 04/20 12:09 Chief complaint: Chief complaint: Patient states: "[facility] because I hurt my left ankle at work and I took an Ibuprofen and when I got to the urgent care they saw I was wheezing and sent me here". Audible wheezing and SOB noted. Pt denies recent illness. Pt reports symptoms began approximately 1 hr after taking Ibuprofen. 12:09 Acuity: TINY 2 aa5 12:09 Method Of Arrival: Ambulatory aa5 12:09 Coronavirus screen: Client denies travel out of the [place] in the last 14 days. At this aa5 time, the client does not indicate any symptoms associated with coronavirus-19. 12:09 Ebola Screen: Patient negative for fever greater than or equal to 101.5 degrees aa5 Fahrenheit, and additional compatible Ebola Virus Disease symptoms. Onset: The symptoms/episode began/occurred 1 hour(s) ago. Anaphylaxis evaluation, Audible wheezing. Initial Sepsis Screen: Does the patient meet any 2 criteria? RR > 20 per min. HR > 90 bpm. Does the patient have a suspected source of infection? No. Patient's initial sepsis screen is negative. Risk Assessment: Do you want to hurt yourself or someone else? Patient reports no desire to harm self or others. Onset of symptoms was April 20, 2020. Historical: - Allergies: 12:10 Dilaudid; aa5 - PMHx: 12:10 Hypertension; aa5 - PSHx: 12:10 right foot; aa5 - Immunization history:: Adult Immunizations. - Family history:: not pertinent. - Social history:: Smoking status: unknown. - Hospitalizations: : No recent hospitalization is reported. Screenin:34 Abuse screen: Denies threats or abuse. Nutritional screening: No deficits noted. aa5 Tuberculosis screening: No symptoms or risk factors identified. Fall Risk None identified. Assessment: 12:09 General: Appears distressed, uncomfortable, Behavior is cooperative. Pain: Complains of aa5 pain in left ankle Pain began today. Pt states "I hurt it coming down of something and felt like the ankle gave out on me". Neuro: Level of Consciousness is awake, alert, obeys commands, Oriented to person, place, time, situation. Cardiovascular: Heart tones S1 S2 present Rhythm is regular. Respiratory: Reports shortness of breath Airway is patent Respiratory effort is labored, Respiratory pattern is tachypnea Breath sounds with wheezes bilaterally. GI: Abdomen is round Patient currently denies nausea, vomiting. : No signs and/or symptoms were reported regarding the genitourinary system. EENT: No signs and/or symptoms were reported regarding the EENT system. Derm: Skin is pink, warm \\T\\ dry. Musculoskeletal: Reports pain in left ankle. 12:28 Reassessment: Pt appears more calm than previous assessment but reports SOB and aa5 wheezing have not improved much. MD was notified. . 12:40 Reassessment: Patient is alert, oriented x 3, equal unlabored respirations, skin aa5 warm/dry/pink. Patient states symptoms have improved. Pt reports SOB and wheezing have improved. . 13:00 Reassessment: Patient is alert, oriented x 3, equal unlabored respirations, skin aa5 warm/dry/pink. Patient states feeling better. 13:45 Reassessment: Patient is alert, oriented x 3, equal unlabored respirations, skin aa5 warm/dry/pink. 14:30 Reassessment: Patient is alert, oriented x 3, equal unlabored respirations, skin aa5 warm/dry/pink. Vital Signs: 12:09 BP 151 / 93; Pulse 122; Resp 34 S; Temp 98.9(O); Pulse Ox 89% on R/A; aa5 12:33 Pulse 98; Resp 28 S; Pulse Ox 99% on Nebulizer Mask; aa5 13:00 BP 124 / 80; Pulse 91; Resp 20 S; Pulse Ox 98% on R/A; aa5 13:45 BP 135 / 79; Pulse 90; Resp 16 S; Pulse Ox 98% ; aa5 14:30 BP 141 / 83; Pulse 88; Resp 18 S; Pulse Ox 98% on R/A; aa5 ED Course: 12:05 Patient arrived in ED. as 12:09 Arm band placed on Patient placed in an exam room, on a stretcher. aa5 12:09 Patient has correct armband on for positive identification. Bed in low position. Call aa5 light in reach. Side rails up X2. Pulse ox on. NIBP on. 12:10 Caden Fox MD is Attending Physician. rn 12:15 Initial lab(s) drawn, by tn, sent to lab. Inserted saline lock: 18 gauge in right aa5 antecubital area, using aseptic technique. Blood collected. 12:23 Stacy Montalvo, RN is Primary Nurse. aa5 12:26 EKG done, by ED staff, reviewed by Caden Fox MD. mt 12:31 Triage completed. aa5 14:11 XRAY Ankle LEFT 3 view In Process Unspecified. EDMS 14:11 XRAY Foot LEFT 3 View In Process Unspecified. EDMS 15:28 No provider procedures requiring assistance completed. IV discontinued, intact, iw bleeding controlled, No redness/swelling at site. Pressure dressing applied. Administered Medications: 12:18 Drug: SOLU-Medrol 125 mg Route: IVP; Site: right antecubital; aa5 15:53 Follow up: Response: No adverse reaction; Marked relief of symptoms iw 12:18 Drug: Benadryl 50 mg Route: IVP; Site: right antecubital; aa5 12:18 Drug: Pepcid 20 mg Route: IVP; Site: right antecubital; aa5 12:18 Drug: NS 0.9% 1000 ml Route: IV; Rate: 1000 ml; Site: right antecubital; aa5 13:30 Follow up: IV Status: Completed infusion iw 12:29 Drug: Xopenex 1.25 mg Route: Inhalation; aa5 Outcome: 15:05 Discharge ordered by . rn 15:28 Discharged to home ambulatory. iw 15:28 Condition: good 15:28 Discharge instructions given to patient, Instructed on discharge instructions, follow up and referral plans. medication usage, Demonstrated understanding of instructions, follow-up care, medications, Prescriptions given X 2. 15:28 Patient left the ED. iw Signatures: Dispatcher [employer] Sandra Ashley Irene, RN RN iw Nieto, Roman, MD MD rn Calderon, Audri, JO-ANN RN [id number] Laura Donahue ok Corrections: (The following items were deleted from the chart) 12:31 12:09 Chief complaint: aa5 aa5 12:29 Acuity: TINY 2 aa5 aa5 12:29 Method Of Arrival: Ambulatory aa5 aa5
--- NOTE | 2020-04-20 15:06 | EDPHYS ---
Physician Documentation [facility] Name: Evaristo Honeycutt Age: 29 yrs Sex: Male : 1990 Arrival Date: 04/20/2020 Time: 12:05 Bed 4 Private MD: ED Physician Caden Fox HPI: 04/20 14:58 This 29 yrs old Male presents to ER via Ambulatory with complaints of rn Allergic Reaction. 14:58 The patient presents with wheezing. Onset: The symptoms/episode began/occurred just rn prior to arrival. Possible causes: The patient has no known obvious cause for the symptoms. At home the patient or guardian has treated the symptoms with nothing. Severity of symptoms: At their worst the symptoms were moderate in the emergency department the symptoms are unchanged. The patient has experienced similar episodes in the past. Reports several episodes in past like this, unknown allergic reactions, no fever/cough. Tong snot feel ill. Went to urgent care for ankle injury/sprain, noted to have difficulty breathing and sent here. . Historical: - Allergies: 12:10 Dilaudid; aa5 - PMHx: 12:10 Hypertension; aa5 - PSHx: 12:10 right foot; aa5 - Immunization history:: Adult Immunizations. - Family history:: not pertinent. - Social history:: Smoking status: unknown. - Hospitalizations: : No recent hospitalization is reported. ROS: 14:58 Constitutional: Negative for fever, chills, and weight loss, Eyes: Negative for injury, rn pain, redness, and discharge, Cardiovascular: Negative for chest pain, palpitations, and edema, Respiratory: + sob and wheezing Abdomen/GI: Negative for abdominal pain, nausea, vomiting, diarrhea, and constipation, MS/Extremity: + left ankle and foot injury/swelling Skin: Negative for injury, rash, and discoloration, Neuro: Negative for headache, weakness, numbness, tingling, and seizure. Exam: 14:58 Constitutional: This is a well developed, well nourished patient who is awake, alert, rn appears anxious, audible wheezing Head/Face: Normocephalic, atraumatic. ENT: No stridor Cardiovascular: Regular rate and rhythm. No pulse deficits. Respiratory: + tachypneic with audible wheezing Abdomen/GI: soft, non-tender Skin: Warm, dry, no rash or cyanosis. MS/ Extremity: Pulses equal, no cyanosis. + mild ankle painful ROM Neuro: Awake and alert, GCS 15, oriented to person, place, time, and situation. Cranial nerves II-XII grossly intact. Motor strength 5/5 in all extremities. Sensory grossly intact. Cerebellar exam normal. Vital Signs: 12:09 BP 151 / 93; Pulse 122; Resp 34 S; Temp 98.9(O); Pulse Ox 89% on R/A; aa5 12:33 Pulse 98; Resp 28 S; Pulse Ox 99% on Nebulizer Mask; aa5 13:00 BP 124 / 80; Pulse 91; Resp 20 S; Pulse Ox 98% on R/A; aa5 13:45 BP 135 / 79; Pulse 90; Resp 16 S; Pulse Ox 98% ; aa5 14:30 BP 141 / 83; Pulse 88; Resp 18 S; Pulse Ox 98% on R/A; aa5 MDM: 12:11 Patient medically screened. rn 15:02 Differential diagnosis: anaphylaxis, angioedema, allergic reaction. Data reviewed: rn vital signs, nurses notes, lab test result(s), EKG, radiologic studies, plain films, and as a result, I will discharge patient. 15:02 Counseling: I had a detailed discussion with the patient and/or guardian regarding: the rn historical points, exam findings, and any diagnostic results supporting the discharge/admit diagnosis, lab results, radiology results, the need for outpatient follow up, to return to the emergency department if symptoms worsen or persist or if there are any questions or concerns that arise at home. Special discussion: I discussed with the patient/guardian in detail that at this point there is no indication for admission to the hospital. It is understood, however, that if the symptoms persist or worsen the patient needs to return immediately for re-evaluation. 04/20 12:15 Order name: CBC with Diff; Complete Time: 13:02 rn 04/20 12:15 Order name: Basic Metabolic Panel; Complete Time: 13:02 rn 04/20 12:15 Order name: Troponin (emerg Dept Use Only); Complete Time: 13:02 rn 04/20 12:15 Order name: BNP; Complete Time: 13:02 rn 04/20 13:09 Order name: XRAY Ankle LEFT 3 view; Complete Time: 14:49 rn 04/20 13:09 Order name: XRAY Foot LEFT 3 View; Complete Time: 14:49 rn 04/20 12:15 Order name: IV Start; Complete Time: 12:23 rn 04/20 12:15 Order name: EKG; Complete Time: 12:16 rn 04/20 12:15 Order name: EKG - Nurse/Tech; Complete Time: 12:23 rn Administered Medications: 12:18 Drug: SOLU-Medrol 125 mg Route: IVP; Site: right antecubital; aa5 15:53 Follow up: Response: No adverse reaction; Marked relief of symptoms iw 12:18 Drug: Benadryl 50 mg Route: IVP; Site: right antecubital; aa5 12:18 Drug: Pepcid 20 mg Route: IVP; Site: right antecubital; aa5 12:18 Drug: NS 0.9% 1000 ml Route: IV; Rate: 1000 ml; Site: right antecubital; aa5 13:30 Follow up: IV Status: Completed infusion iw 12:29 Drug: Xopenex 1.25 mg Route: Inhalation; aa5 Disposition: 04/20/20 15:05 Discharged to Home. Impression: Dyspnea, unspecified, Acute allergic reaction. - Condition is Stable. - Discharge Instructions: Shortness of Breath. - Prescriptions for Prednisone 20 mg Oral Tablet - take 3 tablet by ORAL route once daily for 5 days; 15 tablet. Albuterol Sulfate 90 mcg/actuation - inhale 1-2 puff by INHALATION route every 4-6 hours; 1 Inhaler. - Medication Reconciliation Form, Thank You Letter, Antibiotic Education, Prescription Opioid Use form. - Follow up: Private Physician; When: As needed; Reason: Recheck today's complaints, Re-evaluation by your physician. - Problem is new. - Symptoms have improved. Signatures: Dispatcher [employer] EDMS Gely Abraham RN RN iw Nieto, Roman, MD MD rn Calderon, Audri, RN RN aa5 Corrections: (The following items were deleted from the chart) 15:28 15:05 04/20/2020 15:05 Discharged to Home. Impression: Dyspnea, unspecified; Acute iw allergic reaction. Condition is Stable. Forms are Medication Reconciliation Form, Thank You Letter, Antibiotic Education, Prescription Opioid Use. Follow up: Private Physician; When: As needed; Reason: Recheck today's complaints, Re-evaluation by your physician. Problem is new. Symptoms have improved. rn
[2020-04-20 16:22] VITALS: BP 151/93; TEMP 98.9
[2020-04-20 16:25] VITALS: O2SAT 99
--- NOTE | 2020-04-22 07:09 | EKG ---
Test Date: 2020-04-20 Test Time: 12:22:04 Deputy Clerk: GENO MEASUREMENT RESULTS: Intervals: Rate: 104 VA: 142 QRSD: 106 QT: 362 QTc: 476 [place]: P: 31 VA: 142 QRS: 42 T: 43 INTERPRETIVE STATEMENTS: Sinus tachycardia Otherwise normal ECG Compared to ECG 11/10/2018 15:19:13 Sinus rhythm no longer present Electronically Signed On 04-22-20 07:04:18 CDT by Anup Ortiz
== END 2020-04-20 15:28 | disposition home or self-care (01) ==
LOC: ER 12:04
DX: R06.00 Dyspnea, unspecified (principal); I10 Essential (primary) hypertension; Z88.5 Allergy status to narcotic agent
CPT/HCPCS: 96361; 93005; 85025; 80048; 36415; 84484; 83880; 73630; 73610; 96375; 96374; 99285; J1200; J7030; J2930

== ENCOUNTER 2021-04-23 07:29 | Emergency (ER) | payer OTHER ==
[2021-04-23 07:59] LABS: Absolute Lymphocytes (CBC) 1.8 K/uL (0.7-4.9); Basophils % 0.9 % (0-1.3); Hematocrit 45.2 % (39.6-49.0); Lymphocytes % 24.7 % (15.3-44.8); RBC Red Blood Cell Count 5.23 M/uL (4.33-5.43)
[2021-04-23 08:12] LABS: ALT/SGPT 39 U/L (12-78); AST/SGOT 14 U/L (15-37); Alkaline Phosphatase 96 U/L (45-117); BUN Blood Urea Nitrogen 11 mg/dL (7-18); Bicarbonate 24 mmol/L (21-32); Bilirubin Direct < 0.1 mg/dL (0-0.2); Bilirubin Total 0.3 mg/dL (0.2-1.0); Glucose Level 114 mg/dL (74-106); Lipase 193 U/L (73-393); Potassium 3.8 mmol/L (3.5-5.1); Protein, Total 7.5 g/dL (6.4-8.2); Sodium Level 143 mmol/L (136-145)
[2021-04-23] MEDS ORDERED: NA CHLORIDE 0.9% 1,000 ML ONE ×2 (08:17→09:43)
[2021-04-23] MEDS ORDERED: LIDOCAINE 1% MPF 5 ML VIAL ONE (08:31)
--- NOTE | 2021-04-23 08:50 | RAD REPORT ---
EXAM DESCRIPTION: CT - Abdomen Pelvis W Contrast - 04/23/2021 8:26 am CLINICAL HISTORY: ABD PAIN COMPARISON: <Comparisons> TECHNIQUE: Biphasic, helical CT imaging of the abdomen and pelvis was performed following 100 ml non -ionic IV contrast. No oral contrast administered. All CT scans are performed using dose optimization technique as appropriate and may include automated exposure control or mA/KV adjustment according to patient size. FINDINGS: No suspicious findings in the lung bases. The liver, spleen, and pancreas show no suspicious findings. Liver attenuation is borderline to mildl y fatty infiltrated. No portal vein abnormality. Gallbladder and biliary tree are also without suspic ious finding. Mild right-sided hydronephrosis present secondary to a 3 mm stone at the distal right ureter near the UVJ. This causes mild delay in function. No other obstructing or nonobstructing calculus. No pyelone phritis or acute parenchymal process. No bladder abnormalities. No adrenal abnormalities. No dilated bowel loops or bowel wall thickening. No appendicitis findings. No free air, free fluid or inflammatory stranding. No mass or bulky lymphadenopathy. Minimal sized fat only left inguinal reg ia present. No suspicious bony findings. IMPRESSION: Mild right-sided hydronephrosis secondary to a 3 mm distal right ureteral stone at the U VJ.
[2021-04-23] MEDS ORDERED: TAMSULOSIN 0.4 MG SR CAP ONE (09:43)
[2021-04-23] MEDS ORDERED: MAGNESIUM SULFATE 1 gm IVPB 1 GM/100 ML BAG IV ONE (09:43)
[2021-04-23 10:46] LABS: Urine Blood 1+ (Negative); Urine Glucose Negative (Negative); Urine Protein Negative (Negative); Urine pH 7.5 (5.0-7.0)
--- NOTE | 2021-04-23 10:48 | EDPHYS ---
Physician Documentation [facility] Name: Evaristo Honeycutt Age: 30 yrs Sex: Male : 1990 Arrival Date: 04/23/2021 Time: 07:30 Bed 14 Private MD: Al[facility] ED Physician Dayton Busby HPI: 04/23 07:57 This 30 yrs old Male presents to ER via Wheelchair with complaints of jmm Abdominal Pain. 07:57 The patient presents with abdominal pain. Onset: The symptoms/episode began/occurred jmm gradually, 1 day(s) ago. The symptoms do not radiate. Associated signs and symptoms: Pertinent positives: nausea and vomiting, Pertinent negatives: diarrhea. The symptoms are described as achy. Modifying factors: The symptoms are alleviated by remaining still, the symptoms are aggravated by. Patient states symptoms began last night. late ate at 630 pm last night. Historical: - Allergies: 07:35 Dilaudid; aa5 07:35 Ibuprofen; aa5 - PMHx: 07:35 Hypertension; aa5 - PSHx: 07:35 reconstruction to right foot; aa5 - Immunization history:: Client reports having NOT received the Covid vaccine. Flu vaccine is not up to date. - Social history:: Smoking status: Patient denies any tobacco usage or history of. ROS: 07:57 Constitutional: Negative for fever, chills, and weight loss, Cardiovascular: Negative jmm for chest pain, palpitations, and edema, Respiratory: Negative for shortness of breath, cough, wheezing, and pleuritic chest pain. 07:57 Abdomen/GI: Positive for abdominal pain. 07:57 All other systems are negative. Exam: 07:57 Constitutional: This is a well developed, well nourished patient who is awake, alert, jmm and in no acute distress. Head/Face: atraumatic. Eyes: EOMI, no conjunctival erythema appreciated ENT: Moist Mucus Membranes Neck: Trachea midline, Supple Chest/axilla: Normal chest wall appearance and motion. Cardiovascular: Regular rate and rhythm. No edema appreciated Respiratory: Normal respirations, no respiratory distress appreciated Abdomen/GI: Non distended, soft Back: Normal ROM Skin: General appearance color normal MS/ Extremity: Moves all extremities, no obvious deformities appreciated, no edema noted to the lower extremities Neuro: Awake and alert, normal gait Psych: Behavior is normal, Mood is normal, Patient is cooperative and pleasant Vital Signs: 07:34 BP 141 / 95; Pulse 72; Resp 20; Temp 97.7(O); Pulse Ox 100% on R/A; Weight 105.23 kg aa5 (R); Height 5 ft. 9 in. (175.26 cm) (R); 09:40 BP 127 / 76; Pulse 69; Resp 17 S; Pulse Ox 97% on R/A; jd3 10:42 BP 127 / 76; Pulse 70; Resp 16 S; Pulse Ox 97% on R/A; jd3 07:34 Body Mass Index 34.26 (105.23 kg, 175.26 cm) aa5 MDM: 07:45 Patient medically screened. [facility] 10:35 Data reviewed: vital signs, nurses notes. Counseling: I had a detailed discussion with sabino the patient and/or guardian regarding: the historical points, exam findings, and any diagnostic results supporting the discharge/admit diagnosis, lab results, radiology results, the need for outpatient follow up, to return to the emergency department if symptoms worsen or persist or if there are any questions or concerns that arise at home. ED course: Patient states feeling much better. Is able to tolerate p.o. in the ED. Patient advised follow-up PCP and otherwise given strict return precautions. Patient understood agrees plan of care.. 04/23 07:39 Order name: Basic Metabolic Panel; Complete Time: 08:18 [facility] 04/23 07:39 Order name: CBC with Diff; Complete Time: 08:18 [facility] 04/23 07:39 Order name: Hepatic Function; Complete Time: 08:18 [facility] 04/23 07:39 Order name: Lipase; Complete Time: 08:18 [facility] 04/23 07:39 Order name: CT Abd/Pelvis - IV Contrast Only; Complete Time: 08:51 [facility] 04/23 10:45 Order name: Urine Dipstick-Ancillary; Complete Time: 10:49 [facility] 04/23 07:39 Order name: IV Saline Lock; Complete Time: 07:48 [facility] 04/23 07:39 Order name: Labs collected and sent; Complete Time: 07:48 [facility] 04/23 07:39 Order name: Urine Dipstick-Ancillary (obtain specimen); Complete Time: 10:40 [facility] Administered Medications: 07:55 Drug: NS 0.9% 1000 ml Route: IV; Rate: 1 bolus; Site: right antecubital; jd3 08:55 Follow up: Response: No adverse reaction; IV Status: Completed infusion; IV Intake: jd3 1000ml 09:39 Drug: Flomax (tamsulosin) 0.4 mg Route: PO; jd3 10:35 Follow up: Response: No adverse reaction jd3 09:39 Drug: NS 0.9% 1000 ml Route: IV; Rate: 1 bolus; Site: right antecubital; jd3 10:39 Follow up: Response: No adverse reaction; IV Status: Completed infusion; IV Intake: jd3 1000ml 09:39 Drug: Magnesium Sulfate 1 grams Route: IVPB; Infused Over: 1 hrs; Site: right d3 antecubital; 10:39 Follow up: Response: No adverse reaction; IV Status: Completed infusion; IV Intake: jd3 100ml Disposition: 12:55 Co-signature as Attending Physician, Dayton Busby MD I agree with the assessment and channing plan of care. Disposition Summary: 04/23/21 10:47 Discharge Ordered Location: Home [facility] Condition: Stable [facility] Diagnosis - Calculus of ureter [facility] Followup: [facility] - With: Contreras Roberts MD - When: 2 - 3 days - Reason: Recheck today's complaints, Continuance of care, Re-evaluation by your physician Discharge Instructions: - Discharge Summary Sheet [facility] - Kidney Stones [facility] Forms: - Medication Reconciliation Form [facility] - Thank You Letter [facility] - Antibiotic Education [facility] - Prescription Opioid Use [facility] Prescriptions: - Flomax 0.4 mg Oral capsule - take 1 capsule by ORAL route once daily 1/2 hour following the same meal each [facility] day; 10 capsule; Refills: 0, Product Selection Permitted - ondansetron 4 mg Oral tablet,disintegrating - take 1 tablet by ORAL route 4 times per day; 20 tablet; Refills: 0, Product [facility] Selection Permitted Signatures: Dispatcher [employer] Dayton Bazan MD MD cha Mickail, Joel, PA PA jm Stacy Montalvo, RN RN aa5 Hua Mojica RN RN jd3
--- NOTE | 2021-04-23 10:48 | ER ---
Nurse's Notes [facility] Name: Evaristo Honeycutt Age: 30 yrs Sex: Male : 1990 Arrival Date: 04/23/2021 Time: 07:30 Bed 14 Private MD: Jayesh Pino Diagnosis: Calculus of ureter Presentation: 04/23 07:34 Chief complaint: Patient states: "I woke up this morning with pain (pt points to RLQ)". aa5 Pt denies vomiting/diarrhea. Reports nausea. Coronavirus screen: At this time, the client does not indicate any symptoms associated with coronavirus-19. Ebola Screen: Patient negative for fever greater than or equal to 101.5 degrees Fahrenheit, and additional compatible Ebola Virus Disease symptoms. Initial Sepsis Screen: Does the patient meet any 2 criteria? No. Patient's initial sepsis screen is negative. Does the patient have a suspected source of infection? No. Patient's initial sepsis screen is negative. Risk Assessment: Do you want to hurt yourself or someone else? Patient reports no desire to harm self or others. Onset of symptoms was April 23, 2021. 07:34 Method Of Arrival: Wheelchair aa5 07:34 Acuity: TINY 3 aa5 Historical: - Allergies: 07:35 Dilaudid; aa5 07:35 Ibuprofen; aa5 - PMHx: 07:35 Hypertension; aa5 - PSHx: 07:35 reconstruction to right foot; aa5 - Immunization history:: Client reports having NOT received the Covid vaccine. Flu vaccine is not up to date. - Social history:: Smoking status: Patient denies any tobacco usage or history of. Screenin:50 Abuse screen: Denies threats or abuse. Nutritional screening: No deficits noted. jd3 Tuberculosis screening: No symptoms or risk factors identified. Fall Risk Ambulatory Aid- None/Bed Rest/Nurse Assist (0 pts). Gait- Normal/Bed Rest/Wheelchair (0 pts) Mental Status- Oriented to own ability (0 pts). Total Farfan Fall Scale indicates No Risk (0-24 pts). Assessment: 07:48 General: Appears in no apparent distress. comfortable, Behavior is calm, cooperative, jd3 appropriate for age. Pain: Complains of pain in abdomen Quality of pain is described as sharp, tender, Alleviated by pt reporting to not want pain medications at this time. Neuro: Level of Consciousness is awake, alert, obeys commands, Oriented to person, place, time, situation. Cardiovascular: Denies chest pain, Capillary refill < 3 seconds Patient's skin is warm and dry. Respiratory: Airway is patent Respiratory effort is even, unlabored, Respiratory pattern is regular, symmetrical, Denies cough, shortness of breath. GI: Abdomen is round non-distended, Abd is soft X 4 quads Abdomen is tender to palpation X 4 quads. Reports lower abdominal pain, upper abdominal pain. : No signs and/or symptoms were reported regarding the genitourinary system. EENT: No signs and/or symptoms were reported regarding the EENT system. Derm: Skin is intact, Skin is dry, Skin is normal, Skin temperature is warm. Musculoskeletal: Circulation, motion, and sensation intact. Range of motion: intact in all extremities. 09:40 Reassessment: Patient appears in no apparent distress at this time. No changes from jd3 previously documented assessment. Patient and/or family updated on plan of care and expected duration. Pain level reassessed. Patient is alert, oriented x 3, equal unlabored respirations, skin warm/dry/pink. 10:42 Reassessment: Patient appears in no apparent distress at this time. Patient and/or jd3 family updated on plan of care and expected duration. Pain level reassessed. Patient is alert, oriented x 3, equal unlabored respirations, skin warm/dry/pink. Patient states feeling better. Vital Signs: 07:34 BP 141 / 95; Pulse 72; Resp 20; Temp 97.7(O); Pulse Ox 100% on R/A; Weight 105.23 kg aa5 (R); Height 5 ft. 9 in. (175.26 cm) (R); 09:40 BP 127 / 76; Pulse 69; Resp 17 S; Pulse Ox 97% on R/A; jd3 10:42 BP 127 / 76; Pulse 70; Resp 16 S; Pulse Ox 97% on R/A; jd3 07:34 Body Mass Index 34.26 (105.23 kg, 175.26 cm) aa5 ED Course: 07:30 Patient arrived in ED. as 07:30 Jayesh Pino DO is Private Physician. as 07:32 Eusebio Villarreal PA is PHCP. [facility] 07:32 Dayton Busby MD is Attending Physician. jmm 07:34 Arm band placed on. aa5 07:35 Triage completed. aa5 07:37 Hua Mojica, JO-ANN is Primary Nurse. jd3 07:48 Inserted saline lock: 20 gauge in right antecubital area, using aseptic technique. jd3 Blood collected. placed by [facility] nuclear medicine technologist. 07:50 Patient has correct armband on for positive identification. Bed in low position. Call jd3 light in reach. Side rails up X 1. Adult w/ patient. Pulse ox on. NIBP on. 08:26 CT Abd/Pelvis - IV Contrast Only In Process Unspecified. EDMS 10:42 No provider procedures requiring assistance completed. jd3 10:46 Warm blanket given. 5 10:46 Urine Dipstick-Ancillary Sent. 5 10:46 Urine collected: clean catch specimen, cloudy. 5 10:47 Contreras Roberts MD is Referral Physician. [facility] Administered Medications: 07:55 Drug: NS 0.9% 1000 ml Route: IV; Rate: 1 bolus; Site: right antecubital; jd3 08:55 Follow up: Response: No adverse reaction; IV Status: Completed infusion; IV Intake: jd3 1000ml 09:39 Drug: Flomax (tamsulosin) 0.4 mg Route: PO; jd3 10:35 Follow up: Response: No adverse reaction jd3 09:39 Drug: NS 0.9% 1000 ml Route: IV; Rate: 1 bolus; Site: right antecubital; jd3 10:39 Follow up: Response: No adverse reaction; IV Status: Completed infusion; IV Intake: jd3 1000ml 09:39 Drug: Magnesium Sulfate 1 grams Route: IVPB; Infused Over: 1 hrs; Site: right jd3 antecubital; 10:39 Follow up: Response: No adverse reaction; IV Status: Completed infusion; IV Intake: jd3 100ml Intake: 08:55 IV: 1000ml; Total: 1000ml. jd3 10:39 IV: 1000ml; Total: 2000ml. jd3 10:39 IV: 100ml; Total: 2100ml. jd3 Outcome: 10:47 Discharge ordered by . [facility] 11:02 Patient left the ED. jd3 Signatures: Dispatcher MedEusebio Ca PA PA jmm Martinez, Amelia as Calderon, Audri, RN RN aa5 Kaylee Honeycutt 5 Hua Mojica RN RN jd3
[2021-04-23 11:08] VITALS: TEMP 97.7
[2021-04-23 11:09] VITALS: BP 127/76; O2SAT 97
== END 2021-04-23 11:02 | disposition home or self-care (01) ==
LOC: ER 07:29
DX: N20.1 Calculus of ureter (principal); I10 Essential (primary) hypertension; Z88.5 Allergy status to narcotic agent; Z88.6 Allergy status to analgesic agent
CPT/HCPCS: 96365; 96361; 85025; 80048; 36415; 80076; 81003; 83690; 74177; 99284; Q9967; J3475; J7030 ×2